=== PATIENT | male | born 1985 | race Caucasian/White ===

== ENCOUNTER 2018-05-28 12:54 | Emergency (ER) | payer OTHER ==
[~2018-05-28] VITALS: Ht 185.4 cm; Wt 111.8 kg
--- NOTE | 2018-05-28 13:28 | NUR ---
Pt amb to 37 from lobby
--- NOTE | 2018-05-28 13:34 | NUR ---
PT ARRIVES TO ED WITH C/O OF LEW. PT REPORTS THAT HE HAS A HTN DIAGNOSIS BUT DOES NOT TAKE HIS BP MEDICAITONS. LAST NIGHT HE SAW HIS BP IN THE 150/110 ON HIS HOME MACHINE. PT REPORTS THAT HIS LEW IS POSTERIOR IN OCCIPITAL REGION. PT DENIES ANY VISION CHNAGES OR SLURRED SPEECH. PTS GROSS NEURO IS INTACT. PT IS A.OX4 WITH GOOD BILATERAL PULSES. PT DENIES DRUG USE. PT CONNECTED TO MONITORS AND CALL LIGHT IN REACH.
--- NOTE | 2018-05-28 13:55 | NUR ---
REPORT FROM SIENNA CORTEZ. PT SITTING UP IN [facility], NAD NOTED. SPEECH CLEAR, FACE SYMMETRICAL, +STRENGTH X 4. BP/SPO2/ECG MONITORING IN PLACE. NSR ON MONITOR. AWAITING ERP EVAL.
[2018-05-28] MEDS ORDERED: ACETAMINOPHEN 500 MG TABLET ONE (14:14)
[2018-05-28] MEDS ORDERED: PROCHLORPERAZINE 10MG TABLET ONE (14:14)
--- NOTE | 2018-05-28 14:18 | NUR ---
PT MEDICATED PER EMAR. IMPROVEMENT IN BP NOTED SINCE TRIAGE. PT REPORTS LEW HAS ALSO IMPROVED. AWAITING LAB RESULTS FOR RECHECK
[2018-05-28 14:28] LABS: BASOPHILS # (AUTO) 0.03 x10^3/uL (0-0.1); BASOPHILS % (AUTO) 0 % (0-1); EOSINOPHILS # (AUTO) 0.08 x10^3/uL (0-0.4); EOSINOPHILS % (AUTO) 1 % (1-7); LYMPHOCYTES % (AUTO) 22 % (22-44); MD NO; MEAN CORPUSCULAR HEMOGLOBIN 28.7 pg (27.5-34.5); MEAN CORPUSCULAR HGB CONC 33.8 g/dL (33.2-36.2); MEAN CORPUSCULAR VOLUME 84.8 fL (81-97); MEAN PLATELET VOLUME 8.6 fL (7.4-10.4); MONOCYTES # (AUTO) 0.25 x10^3/uL (0.2-0.8); MONOCYTES % (AUTO) 3 % (2-9); NEUTROPHILS # (AUTO) 5.43 x10^3/uL (1.8-6.8); NEUTROPHILS % (AUTO) 74 % (42-75); PLATELET COUNT 268 x10^3/uL (130-400); RED BLOOD COUNT 5.57 x10^6/uL (4.38-5.82); RED CELL DISTRIBUTION WIDTH 12.6 % (9.4-14.8)
[2018-05-28] MEDS ORDERED: ACETAMINOPHEN 500 MG TABLET PO ONE (14:30)
[2018-05-28] MEDS ORDERED: PROCHLORPERAZINE 10MG TABLET PO PRN (14:30)
[2018-05-28 14:36] LABS: ALBUMIN 4.2 g/dL (3.4-5.0); ANION GAP 4 mmol/L (5-15); CALCIUM 9.4 mg/dL (8.5-10.1); CHLORIDE 107 mmol/L (98-107)
[2018-05-28] MEDS ORDERED: KETOROLAC 30 MG/1 ML ONE (15:16)
[2018-05-28 15:26] VITALS: BP 149/80
--- NOTE | 2018-05-28 15:26 | NUR ---
PT MEDICATED PER EMAR. POC IS DC. PT OFF MONITORING AT THIS TIME AND ALLOWED TO DRESS. FATHER AT BEDSIDE.
[2018-05-28] MEDS ORDERED: KETOROLAC 30 MG/1 ML IM ONE (15:30)
== END 2018-05-28 15:45 | disposition home or self-care (01) ==
LOC: ED 15:39
DX: R51 Headache (principal); I10 Essential (primary) hypertension; F41.9 Anxiety disorder, unspecified
CPT/HCPCS: 36415; 70450; 71045; 80048; 82040; 85025; 93005; 96372; 99284; J1885; Q0164